=== PATIENT | female | born 1960 | race Caucasian/White ===

== ENCOUNTER 2018-06-05 14:58 | Emergency (ER) | payer BC ==
[~2018-06-05] VITALS: Ht 157.5 cm; Wt 65.8 kg
[~2018-06-05 14:58] MED LIST: DEXT5TAB15 PO
[2018-06-05 16:08] LABS: *BILIRUBIN,URIN NEGATIVE (NEGATIVE); *BLOOD, URINE Trace-intact (NEGATIVE); *CLARITY,URINE CLEAR (CLEAR); *COLOR,URINE LIGHT YELLOW (YELLOW); *KETONES,URINE NEGATIVE (NEGATIVE); *PROTEIN,URINE NEGATIVE (NEGATIVE); *UROBILINOGEN,URINE 0.2 E.U./dl (NORMAL); LEUKOCYTE ESTERASE ,URINE NEGATIVE (NEGATIVE); NITRITE, URINE NEGATIVE (NEGATIVE); UGLUCOSE NEGATIVE (NEGATIVE)
[2018-06-05 16:18] LABS: BACTERIA,URINE NONE SEEN /HPF (NONE SEEN); RBC,URINE 0-3 /HPF (0-3); SQUAMOUS EPITHELIAL CELL,UR FEW /HPF (NONE SEEN); WBC,URINE 0-3 /HPF (0-3)
[2018-06-05 16:27] VITALS: BP 104/77
== END 2018-06-05 16:31 | disposition home or self-care (01) ==
LOC: ER 14:58
DX: M54.9 Dorsalgia, unspecified (principal); Z90.49 Acquired absence of other specified parts of digestive tract; Z88.1 Allergy status to other antibiotic agents; Z88.6 Allergy status to analgesic agent; Z88.8 Allergy status to other drugs, medicaments and biological substances
CPT/HCPCS: A4663

== ENCOUNTER 2019-01-11 23:45 | Emergency (ER) | payer BC ==
[~2019-01-11] VITALS: Ht 157.5 cm; Wt 65.3 kg
--- NOTE | 2019-01-12 01:29 | NUR ---
no distress. pt a.ox4 ambulating with good balance. pt stats "id rather not wait for any meds here ill just take the rx". pt advised ++ h20. dont drive if taking meds. fu pdm in 2 days and return if symptoms increase change or persist
[2019-01-12 01:31] VITALS: BP 145/74
== END 2019-01-12 01:31 | disposition home or self-care (01) ==
LOC: ER 23:47
DX: J32.0 Chronic maxillary sinusitis (principal); Z90.49 Acquired absence of other specified parts of digestive tract; Z88.1 Allergy status to other antibiotic agents; Z88.8 Allergy status to other drugs, medicaments and biological substances; Z79.899 Other long term (current) drug therapy
CPT/HCPCS: A4663

== ENCOUNTER 2019-02-04 07:16 | Emergency (ER) | payer BC ==
[~2019-02-04] VITALS: Ht 157.5 cm; Wt 65.3 kg
--- NOTE | 2019-02-04 07:47 | NUR ---
JESÚS HULL AT BEDSIDE FOR MSE.
[2019-02-04] MEDS ORDERED: MORPHINE SULFATE 2 MG/1 ML DISP.SYRIN ONE (07:55)
[2019-02-04] MEDS ORDERED: diphenhydrAMINE 50 MG/1 ML VIAL ONE (07:55)
[2019-02-04] MEDS ORDERED: METOCLOPRAMIDE HCL 10 MG/2 ML VIAL ONE (07:55)
[2019-02-04] MEDS ORDERED: IV NORMAL SALINE 1000 ML BAG IV ONE (08:00)
[2019-02-04] MEDS ORDERED: diphenhydrAMINE 50 MG/1 ML VIAL IV ONE (08:00)
[2019-02-04] MEDS ORDERED: MORPHINE SULFATE 2 MG/1 ML DISP.SYRIN IV ONE (08:00)
[2019-02-04] MEDS ORDERED: METOCLOPRAMIDE HCL 10 MG/2 ML VIAL IV ONE (08:00)
--- NOTE | 2019-02-04 09:31 | NUR ---
JES[facility]S HULL AT BEDSIDE FOR PT UPDATE.
[2019-02-04] MEDS ORDERED: PSEUDOEPHEDRINE HCL 30 MG TABLET ONE (09:43)
[2019-02-04] MEDS ORDERED: PSEUDOEPHEDRINE HCL 30 MG TABLET PO ONE (09:45)
--- NOTE | 2019-02-04 09:48 | NUR ---
Patient discharged to home in stable conditon. Written and verbal after care instructions given. Patient verbalizes understanding of instructions. ALL BELONGINGS W/ PT. PT SELF-AMBULATED W/O DIFFICULTY. 20G IV ACCESS IN LAC REMOVED PRIOR TO D/C - INNER CANNULA INTACT.
[2019-02-04 09:49] VITALS: BP 123/88
--- NOTE | 2019-02-04 09:49 | NUR ---
PT REPORTS SHE WILL BE DRIVEN HOME BY SON IN PRIVATE VEHICLE.
== END 2019-02-04 09:51 | disposition home or self-care (01) ==
LOC: ER 07:16
DX: J32.9 Chronic sinusitis, unspecified (principal); G43.909 Migraine, unspecified, not intractable, without status migrainosus; Z90.49 Acquired absence of other specified parts of digestive tract; Z88.2 Allergy status to sulfonamides; Z88.8 Allergy status to other drugs, medicaments and biological substances; Z79.899 Other long term (current) drug therapy
CPT/HCPCS: 96361; 96374; 96375; 99283; J1200; J2270; J2765; A4663; J7030

== ENCOUNTER 2019-02-28 18:02 | Emergency (ER) | payer BC ==
[~2019-02-28] VITALS: Ht 157.5 cm; Wt 63.0 kg
--- NOTE | 2019-02-28 18:11 | NUR ---
Dr Mejia at the bedside for MSE.
[2019-02-28] MEDS ORDERED: ONDANSETRON 4 MG/2 ML VIAL IM ONE (18:15)
[2019-02-28] MEDS ORDERED: HYDROMORPHONE 1 MG/1 ML DISP.SYRIN IM ONE (18:15)
[2019-02-28] MEDS ORDERED: HYDROMORPHONE 2 MG/1 ML DISP.SYRIN ONE (18:18)
[2019-02-28] MEDS ORDERED: ONDANSETRON 4 MG/2 ML VIAL ONE (18:18)
[2019-02-28 18:57] VITALS: BP 110/76
--- NOTE | 2019-02-28 18:58 | NUR ---
Patient discharged to home in stable conditon. Written and verbal after care instructions given. Patient verbalizes understanding of instructions.
== END 2019-02-28 18:58 | disposition home or self-care (01) ==
LOC: ER 18:02
DX: G43.909 Migraine, unspecified, not intractable, without status migrainosus (principal); Z88.1 Allergy status to other antibiotic agents; Z88.8 Allergy status to other drugs, medicaments and biological substances; Z90.49 Acquired absence of other specified parts of digestive tract; Z79.899 Other long term (current) drug therapy
CPT/HCPCS: 96372 ×2; 99283; J1170; J2405; A4663

== ENCOUNTER 2019-07-03 18:42 | Emergency (ER) | payer BC ==
[~2019-07-03] VITALS: Ht 157.5 cm; Wt 64.4 kg
[2019-07-03] MEDS ORDERED: RIZA10TA27 PO (18:52)
--- NOTE | 2019-07-03 18:56 | NUR ---
received report from Shweta ACEVEDO.
--- NOTE | 2019-07-03 18:59 | NUR ---
patient came from home. chief complaint of a migraine that began this morning and has not gone away after taking 2 doses of maxalt. Patient states that "maxalt usually works for her migrains, but this time it doesnt work."
[2019-07-03] MEDS ORDERED: HYDROMORPHONE 1 MG/1 ML DISP.SYRIN IM ONE (19:00)
[2019-07-03] MEDS ORDERED: ONDANSETRON ODT 4 MG TAB.RAPDIS SL ONE (19:00)
[2019-07-03] MEDS ORDERED: ONDANSETRON ODT 4 MG TAB.RAPDIS ONE (19:07)
[2019-07-03] MEDS ORDERED: HYDROMORPHONE 1 MG/1 ML DISP.SYRIN ONE (19:08)
--- NOTE | 2019-07-03 19:52 | NUR ---
Patient discharged to home in stable conditon. Written and verbal after care instructions given. Patient verbalizes understanding of instructions. Patient self ambulatory with steady gait. Exit care package and personal belongings taken home with the patient at discharge. patient denies any pain or discomfort at the time. / Chris evaluated pateint prior to discharge and completed neauro assessment.
[2019-07-03 19:54] VITALS: BP 128/78
== END 2019-07-03 19:45 | disposition home or self-care (01) ==
LOC: ER 18:44
DX: G43.909 Migraine, unspecified, not intractable, without status migrainosus (principal); J32.9 Chronic sinusitis, unspecified; Z90.49 Acquired absence of other specified parts of digestive tract; Z88.1 Allergy status to other antibiotic agents; Z88.8 Allergy status to other drugs, medicaments and biological substances; Z79.899 Other long term (current) drug therapy
CPT/HCPCS: 96372; 99283; J1170; A4663; Q0162